=== PATIENT | female | born 1995 | race Caucasian/White ===

== ENCOUNTER 2017-04-23 12:41 | Emergency (ER) | payer MEDICAID ==
[2017-04-23 12:51] VITALS: PULSE 78; O2SAT 97
--- NOTE | 2017-04-23 12:59 | EDPHY ---
H & P Stated Complaint: left leg pain, nausea Time Seen by Provider: 04/23/17 12:49 HPI/ROS: CHIEF COMPLAINT: Leg pressure HISTORY OF PRESENT ILLNESS: The patient is a 21-year-old female who comes to the emergency department complaining of pressure in her left thigh and calf. She also points to a merino line on her left thigh and states that she is not sure how she got it. She does not complain of pain. She can ambulate without difficulty. She denies any trauma. She denies swelling or erythema. No fevers. She has mild nausea as well. She is not sure if she is . She denies having any urinary or vaginal symptoms. No chest pain or shortness of breath. She states that for the last day it feels like she is about to have a charley horse but that she has not had one. No knee or hip pain. REVIEW OF SYSTEMS: Constitutional: denies: chills, fever, recent illness, recent injury EENTM: denies: blurred vision, double vision, nose congestion Respiratory: denies: cough, shortness of breath Cardiac: denies: chest pain, irregular heart rate, lightheadedness, palpitations Gastrointestinal/Abdominal: denies: abdominal pain, diarrhea, nausea, vomiting, blood streaked stools Genitourinary: denies: dysuria, frequency, hematuria, pain Musculoskeletal: See HPI Skin: denies: lesions, rash, jaundice, bruising Neurological: denies: headache, numbness, paresthesia, tingling, dizziness, weakness Hematologic/Lymphatic: denies: blood clots, easy bleeding, easy bruising Immunologic/allergic: denies: HIV/AIDS, transplant EXAM: GENERAL: Well-appearing, well-nourished and in no acute distress. HEAD: Atraumatic, normocephalic. EYES: Pupils equal round and reactive to light, extraocular movements intact, sclera anicteric, conjunctiva are normal. ENT: TMs normal, nares patent, oropharynx clear without exudates. Moist mucous membranes. NECK: Normal range of motion, supple without lymphadenopathy or JVD. LUNGS: Breath sounds clear to auscultation bilaterally and equal. No wheezes rales or rhonchi. HEART: Regular rate and rhythm without murmurs, rubs or gallops. ABDOMEN: Soft, nontender, normoactive bowel sounds. No guarding, no rebound. No masses appreciated. BACK: No CVA tenderness, no spinal tenderness, step-offs or deformities EXTREMITIES: Normal exam, normal range of motion. No tenderness. No swelling. No erythema normal strength and ambulation NEUROLOGICAL: Cranial nerves II through XII grossly intact. Normal speech, normal gait. 5/5 strength, normal movement in all extremities, normal sensation PSYCH: Normal mood, normal affect. SKIN: Warm, dry, normal turgor, no visible rashes or lesions. Source: Patient Exam Limitations: No limitations - Personal History LMP (Females 10-55): 8-14 Days Ago Current Tetanus/Diphtheria Vaccine: Unsure - Medical/Surgical History Hx Asthma: No Hx Chronic Respiratory Disease: No Hx Diabetes: Yes Hx Renal Disease: No Hx Cirrhosis: No Hx Alcoholism: No Hx HIV/AIDS: No Hx Splenectomy or Spleen Trauma: No Other PMH: htn. diabetes onset age 14 - Family History Significant Family History: No pertinent family hx - Social History Smoking Status: Never smoked Alcohol Use: Sober Drug Use: None Constitutional: Initial Vital Signs Temperature (C) 36.9 C 04/23/17 12:48 Heart Rate 78 04/23/17 12:48 Respiratory Rate 18 04/23/17 12:48 Blood Pressure 166/100 H 04/23/17 12:48 O2 Sat (%) 97 04/23/17 12:48 O2 Delivery Mode Room Air Allergies/Adverse Reactions: No Known Allergies Allergy (Verified 06/24/15 13:55) Home Medications: Medication Instructions Recorded Levemir 08/06/14 Lisinopril 08/06/14 Metformin HCl 08/06/14 Insulin Aspart Novolog 70/30 06/24/15 [Novolog Mix 70/30 (RX)] Medical Decision Making ED Course/Re-evaluation: 1:40 p.m. the patient's lab work is reassuring. Physical exam is completely benign. We discussed a period of observation and following up with her primary physician in the next few days or returning here. She understands and agrees with this plan. Differential Diagnosis: Partial list of the Differential diagnosis considered include but were not limited to; DVT, muscle strain, and although unlikely based on the history and physical exam, I also considered fasciitis, fracture, cellulitis. I discussed these differential diagnoses and the plan with the patient as well as the usual and expected course. The patient understands that the diagnosis is provisional and that in medicine we are not always correct and that further workup is often warranted. Usual and customary warnings were given. All of the patient's questions were answered. The patient was instructed to return to the emergency department should the symptoms at all worsen or return, otherwise to followup with the physician as we discussed. - Data Points Laboratory Results: Laboratory Results 04/23/17 13:04 04/23/17 13:04 04/23/17 04/23/17 04/23/17 13:04 13:04 13:04 WBC RBC Hgb Hct MCV MCH MCHC RDW Plt Count MPV Neut % (Auto) Lymph % (Auto) [place] % (Auto) Eos % (Auto) Baso % (Auto) Nucleat RBC Rel Count Absolute Neuts (auto) Absolute Lymphs (auto) Absolute Monos (auto) Absolute Eos (auto) Absolute Basos (auto) Absolute Nucleated RBC Immature Gran % Immature Gran # D-Dimer < 0.27 ug/mLFEU ug/mLFEU (0.00-0.50) Sodium 141 mEq/L mEq/L (134-144) Potassium 3.8 mEq/L mEq/L (3.5-5.2) Chloride 100 mEq/L mEq/L (97-110) Carbon Dioxide 23 mEq/l mEq/l (22-31) Anion Gap 18 mEq/L H mEq/L (8-16) BUN 12 mg/dL mg/dL (7-23) Creatinine 0.5 mg/dL L mg/dL (0.6-1.0) Estimated GFR > 60 Glucose 184 mg/dL H mg/dL (70-100) Calcium 9.7 mg/dL mg/dL (8.5-10.4) Beta HCG, Qual NEGATIVE 04/23/17 13:04 WBC 14.25 10^3/uL H 10^3/uL (3.80-9.50) RBC 5.63 10^6/uL H 10^6/uL (4.18-5.33) Hgb 16.1 g/dL g/dL (12.6-16.3) Hct 46.2 % % (38.0-47.0) MCV 82.1 fL fL (81.5-99.8) MCH 28.6 pg pg (27.9-34.1) MCHC 34.8 g/dL g/dL (32.4-36.7) RDW 12.1 % % (11.5-15.2) Plt Count 326 10^3/uL 10^3/uL (150-400) MPV 9.9 fL fL (8.7-11.7) Neut % (Auto) 57.3 % % (39.3-74.2) Lymph % (Auto) 34.1 % % (15.0-45.0) [place] % (Auto) 6.8 % % (4.5-13.0) Eos % (Auto) 0.9 % % (0.6-7.6) Baso % (Auto) 0.6 % % (0.3-1.7) Nucleat RBC Rel Count 0.0 % % (0.0-0.2) Absolute Neuts (auto) 8.17 10^3/uL H 10^3/uL (1.70-6.50) Absolute Lymphs (auto) 4.86 10^3/uL H 10^3/uL (1.00-3.00) Absolute Monos (auto) 0.97 10^3/uL H 10^3/uL (0.30-0.80) Absolute Eos (auto) 0.13 10^3/uL 10^3/uL (0.03-0.40) Absolute Basos (auto) 0.08 10^3/uL 10^3/uL (0.02-0.10) Absolute Nucleated RBC 0.00 10^3/uL 10^3/uL (0-0.01) Immature Gran % 0.3 % % (0.0-1.1) Immature Gran # 0.04 10^3/uL 10^3/uL (0.00-0.10) D-Dimer Sodium Potassium Chloride Carbon Dioxide Anion Gap BUN Creatinine Estimated GFR Glucose Calcium Beta HCG, Qual Departure - Departure Disposition: Home, Routine, Self-Care Clinical Impression: Leg pain Qualifiers: Laterality: left Qualified Code(s): M79.605 - Pain in left leg Condition: Fair Instructions: Leg Pain (ED) Referrals: FELICIA LOW,. [Primary Care Provider] - As per Instructions
[2017-04-23 13:08] LABS: % IMMATURE GRANULYOCYTES 0.3 % (0.0-1.1); ABSOLUTE IMMATURE GRANULOCYTES 0.04 10^3/uL (0.00-0.10); ADD DIFF? NO; ADD MORPH? NO; ADD SCAN? NO; ATYPICAL LYMPHOCYTE FLAG 0 (0-99); FRAGMENT RBC FLAG 0 (0-99); HEMATOCRIT 46.2 % (38.0-47.0); HEMOGLOBIN 16.1 g/dL (12.6-16.3); LEFT SHIFT FLG 0 (0-99); LIPEMIA HEMOLYSIS FLAG 90 (0-99); MEAN CELL HEMOGLOBIN 28.6 pg (27.9-34.1); MEAN CELL HEMOGLOBIN CONCENTR. 34.8 g/dL (32.4-36.7); MEAN CELL VOLUME 82.1 fL (81.5-99.8); MEAN PLATELET VOLUME 9.9 fL (8.7-11.7); PLATELET CLUMPS FLAG 10 (0-99); PLATELET COUNT 326 10^3/uL (150-400); RED BLOOD CELL COUNT 5.63 10^6/uL (4.18-5.33); RED CELL DISTRIBUTION WIDTH 12.1 % (11.5-15.2)
[2017-04-23 13:26] LABS: ANION GAP 18 mEq/L (8-16); CALCIUM 9.7 mg/dL (8.5-10.4); CARBON DIOXIDE 23 mEq/l (22-31); CHLORIDE 100 mEq/L (97-110); CREATININE 0.5 mg/dL (0.6-1.0); GLOMERULAR FILTRATION RATE > 60; GLUCOSE 184 mg/dL (70-100); POTASSIUM 3.8 mEq/L (3.5-5.2); SODIUM 141 mEq/L (134-144)
[2017-04-23 13:46] VITALS: BP 129/79; RESP 16; TEMP 97.9
== END 2017-04-23 13:46 | disposition home or self-care (01) ==
LOC: CED 12:41
DX: M79.605 Pain in left leg (principal); E11.9 Type 2 diabetes mellitus without complications; I10 Essential (primary) hypertension; Z79.4 Long term (current) use of insulin; Z79.84 Long term (current) use of oral hypoglycemic drugs
CPT/HCPCS: 80048-PO; 84703-PO; 85025-PO; 85378-PO